=== PATIENT | female | born 1970 | race Hispanic/Latino ===

== ENCOUNTER 2025-02-02 14:40 | Emergency (ER) | payer OTHER ==
--- NOTE | 2025-02-02 16:05 | ER ---
Nurse's Notes [facility] Name: Sarahy Strange Age: 54 yrs Sex: Female : 1970 Arrival Date: 02/02/2025 Time: 14:40 Bed IW10 [facility] MD: Diagnosis: Assessment: 02/02 15:40 Reassessment: PT CALLED TWICE FROM TRIAGE, NO ANSWER. dd2 ED Course: 14:45 Patient arrived in ED. al6 14:46 Kenny Nichole NP is PHCP. cr8 14:46 Eric Villar DO is Attending Physician. cr8 Administered Medications: No medications were administered Outcome: 16:05 Patient left the ED. iw Signatures: Carolin Ly RN RN iw DAVIS, DIANA, RN RN dd2 Chiara Gagnon al6 Kenny Nichole NP [employer]ACK [employer] FIELD COACH cr8
== END 2025-02-02 16:05 | disposition left against medical advice (07) ==
LOC: ER 14:40
DX: Z02.9 Encounter for administrative examinations, unspecified (principal)